=== PATIENT | female | born 1970 | race American Indian/Alaskan Native ===

== ENCOUNTER 2023-10-22 11:59 | Emergency (ER) | payer BC ==
[~2023-10-22] VITALS: Ht 152.4 cm; Wt 42.6 kg
[~2023-10-22 11:59] MED LIST: LITHIUM; [UNRECOGNIZED DRUG - OTHER]
[2023-10-22 12:04] VITALS: BP_SYST 144; PULSE 75; RESP 18; TEMP 98.8; O2SAT 100
[2023-10-22 14:15] LABS: BASOPHILS # (AUTO) 0.1 K/uL (0.0-0.2); BASOPHILS % (AUTO) 0.8 % (0.0-2.0); EOSINOPHILS # (AUTO) 0.2 K/uL (0.0-0.4); EOSINOPHILS % (AUTO) 2.2 % (0.0-4.0); HEMATOCRIT 41.3 % (36-48); HEMOGLOBIN 14.3 g/dL (12.0-16.0); LYMPHOCYTES # (AUTO) 1.8 K/uL (1.0-5.5); LYMPHOCYTES % (AUTO) 19.4 % (20.5-51.5); MEAN CORPUSCULAR HEMOGLOBIN 31 pg (27-31); MEAN CORPUSCULAR HGB CONC 35 % (32-36); MEAN CORPUSCULAR VOLUME 89 fL (79.0-98.0); MONOCYTES # (AUTO) 0.6 K/uL (0.0-1.0); NEUTROPHILS # (AUTO) 6.7 K/uL (1.8-7.7); NEUTROPHILS % (AUTO) 71.6 % (40.0-70.0); PLATELET COUNT (AUTO) 265 K/uL (130-430); RED BLOOD CELL COUNT(AUTO) 4.66 MIL/uL (4.2-6.2); RED CELL DISTRIBUTION WIDTH 14.1 % (9.0-15.0); WHITE BLOOD COUNT (AUTO) 9.3 K/uL (4.8-10.8)
[2023-10-22 14:28] LABS: ALBUMIN 3.7 g/dL (3.4-4.8); BILIRUBIN,DIRECT 0.2 mg/dL (0.0-0.3); CALCIUM 8.9 mg/dL (8.4-11.0); CREATININE 0.94 mg/dL (0.55-1.30); TOTAL BILIRUBIN 1.7 mg/dL (0.0-1.0); TOTAL PROTEIN, SERUM 8.1 g/dL (6.4-8.3)
[2023-10-22 14:37] LABS: PROTHROMBIN TIME 10.6 SECS (9.5-12.5)
[2023-10-22] MEDS ORDERED: PRO40 PO (15:13)
[2023-10-22] MEDS ORDERED: ANT30 PO (15:13)
[2023-10-22 15:25] VITALS: BP_SYST 144; PULSE 75; RESP 18; TEMP 98.8; O2SAT 100
== END 2023-10-22 15:23 | disposition home or self-care (01) ==
LOC: SED 11:59
DX: K92.0 Hematemesis (principal); R07.0 Pain in throat; Z88.8 Allergy status to other drugs, medicaments and biological substances
CPT/HCPCS: 36415; 80048; 80076; 82150; 83605; 83690; 85025; 85610; 85730; 86886; 86900; 86901; 99284